=== PATIENT | female | born 1985 | race Caucasian/White ===

== ENCOUNTER 2017-07-02 20:13 | Emergency (ER) | payer OTHER ==
[~2017-07-02] VITALS: Ht 149.9 cm; Wt 104.3 kg
[~2017-07-02 20:13] MED LIST: VASOTEC5 MG
[2017-07-02] MEDS ORDERED: ATENOLOL25 MG (20:37)
== END 2017-07-02 22:51 | disposition home or self-care (01) ==
LOC: ER 20:13
DX: M79.671 Pain in right foot (principal)